=== PATIENT | male | born 1995 | race Caucasian/White ===

== ENCOUNTER 2020-09-17 18:21 | Emergency (ER) | payer OTHER ==
[~2020-09-17] VITALS: Ht 185.4 cm; Wt 75.0 kg
--- NOTE | 2020-09-17 18:40 | NUR ---
[id number]
[2020-09-17 21:27] LABS: BASOPHILS % (AUTO) 1 % (0-1); EOSINOPHILS % (AUTO) 2 % (1-7); LYMPHOCYTES % (AUTO) 32 % (22-44); MEAN CORPUSCULAR HEMOGLOBIN 30.8 pg (27.5-34.5); MEAN CORPUSCULAR HGB CONC 34.3 g/dL (33.2-36.2); MEAN PLATELET VOLUME 9.8 fL (7.4-10.4); MONOCYTES % (AUTO) 7 % (2-9); NEUTROPHILS % (AUTO) 58 % (42-75); PLATELET COUNT 172 x10^3/uL (130-400); RED BLOOD COUNT 4.97 x10^6/uL (4.38-5.82); RED CELL DISTRIBUTION WIDTH 13.2 % (9.4-14.8)
[2020-09-17 21:30] LABS: ALBUMIN 4.2 g/dL (3.4-5.0); CALCIUM 8.9 mg/dL (8.5-10.1); CREATININE 0.82 mg/dL (0.7-1.3)
--- NOTE | 2020-09-17 21:33 | NUR ---
LATE ENTRY DUE TO PT CARE. PT C/O OF LEFT CHEST PAIN THAT RADIATES TO MIDDLE OF BACK. PT REPORTS NO HEADACHE OR SOB. PT REPORTS THAT HE USES KETAMINE WEEKLY. ATTACHED TO CARD/SP02/BP MONITORING. FILIPPO. BEULAH. PT CHANGED INTO GOWN, AMBULATED TO ROOM. PT ON PHONE IN ROOM. BED IN LOW POSITION, RAILS ENGAGED. CALL LIGHT ON LAP. [facility]
[2020-09-17 21:37] LABS: ANION GAP 5 mmol/L (5-15); CHLORIDE 107 mmol/L (98-107)
[2020-09-17 22:30] VITALS: BP 108/59
--- NOTE | 2020-09-17 23:03 | NUR ---
Patient/Caregiver given discharge instructions and they have confirmed that they understand the instructions. Patient ambulatory with steady gait. NAD, all questions answered appropriately, denies additional needs at this time. No personal belongings left in room after discharge.
== END 2020-09-17 23:04 | disposition home or self-care (01) ==
LOC: ED 21:27
DX: R07.89 Other chest pain (principal); F17.210 Nicotine dependence, cigarettes, uncomplicated; R94.31 Abnormal electrocardiogram [ECG] [EKG]; R06.00 Dyspnea, unspecified; Z72.9 Problem related to lifestyle, unspecified
CPT/HCPCS: 36415; 71045; 80048; 82040; 85025; 93005; 99285; 99406